=== PATIENT | male | born 1965 | race Caucasian/White ===

== ENCOUNTER 2019-10-09 11:14 | Observation (INO) | payer OTHER ==
[~2019-10-09 11:14] MED LIST: Calcium Chloride 1 GM/10 ML Abboject SYRINGE ONE; Dexamethasone 20 MG/5 ML VIAL ONE; EPHEDRINE 25 MG/5 ML SYRINGE ONE; Lidocaine 1% PF 5 ML VIAL ONE; Ondansetron PF 4 MG/2 ML Vial ONE; PHENYLEPHRINE-NS 100 MCG/ML 10 ML SYRINGE ONE; PROPOFOL 200 MG/20 ML VIAL ONE; Rocuronium Bromide 10 MG/ML (10ML VIAL) ONE; Succinylcholine Chloride 20 MG/ML 10 ml SYRINGE FS ONE
[2019-10-09] MEDS ORDERED: Lidocaine 1% w/Epinephrine 1:100K 20 ML VIAL ONE (11:56)
[2019-10-09] MEDS ORDERED: Adacel (T-DAP) 0.5 ML SYRINGE ONE (12:17)
--- NOTE | 2019-10-09 12:48 | RAD ---
EXAM: 3 views of the left ankle HISTORY: Laceration to the lower leg from tin metal COMPARISON: None FINDINGS: 3 views of the left ankle shows no evidence of acute fracture or dislocation. A large lacer ation of the lateral aspect of the leg is seen with adjacent soft tissue swelling. No radiopaque foreign body is seen. No degenerative changes are present. Calcaneal enthesophytes are incidentally s een. IMPRESSION: No evidence of acute osseous abnormality.
--- NOTE | 2019-10-09 12:49 | RAD ---
EXAM: 2 views of the left tibia/fibula HISTORY: Leg pain after laceration with metal COMPARISON: None FINDINGS: There is no evidence of acute fracture or dislocation. A laceration is seen overlying the d istal aspect of the fibula. No degenerative changes are seen in the knee or ankle. No radiopaque foreign body is seen. IMPRESSION: No evidence of acute osseous abnormality.
[2019-10-09] MEDS ORDERED: CEFAZOLIN 1 GM VIAL ONE (13:30)
[2019-10-09 13:40] LABS: #Lymphocytes 1.3 thou/uL (1.20-3.40); #Monocytes 0.7 thou/uL (0.11-0.59); #Neutrophils 8.3 thou/uL (1.40-6.50); %Basophils 0.4 % (0.0-1.0); %Eosinophils 0.5 % (0.0-10.0); %Lymphocytes 12.4 % (21.0-51.0); %Monocytes 6.4 % (0.0-10.0); %Neutrophils 80.3 % (42.0-75.0); Hemoglobin 17.2 g/dL (14.0-18.0); Mean Corpuscular HGB CONC 33.9 g/dL (32.0-36.0); Mean Corpuscular Hemoglobin 32.4 pg (27.0-31.0); Mean Corpuscular Volume 95.3 fL (78.0-98.0); Mean Platelet Volume 7.6 fL (7.4-10.4); Platelet Count 214 thou/uL (130-400); RBC Distribution Width 12.6 % (11.5-14.5); Red Blood Cell (RBC) Count 5.31 mill/uL (4.70-6.10); White Blood Cell (WBC) Count 10.4 thou/uL (4.8-10.8)
[2019-10-09] MEDS ORDERED: Fentanyl 100 MCG/2 ML VIAL ONE ×2 (14:48→18:07)
[2019-10-09] MEDS ORDERED: PROPOFOL 20 ML ONE (18:07)
[2019-10-09] MEDS ORDERED: Meperidine HCl/PF 25 MG/ML VIAL ONE (18:49)
[2019-10-09] MEDS ORDERED: traMADol HCl 50 MG TAB PO PRN ×2 (19:53)
[2019-10-09] MEDS ORDERED: Promethazine HCl 25 MG/ML VIAL IM PRN (19:53)
[2019-10-09] MEDS ORDERED: Morphine 2 MG/ML VIAL SLOW IVP PRN (19:53)
[2019-10-09] MEDS ORDERED: Ondansetron PF 4 MG/2 ML Vial IV PRN (19:53)
[2019-10-09] MEDS ORDERED: Acetaminophen 325 MG TAB PO PRN (19:53)
[2019-10-09] MEDS ORDERED: HYDROcodone/Acetaminophen 5/325 mg Tablet PO PRN ×2 (19:53)
[2019-10-09] MEDS ORDERED: Communication Order-Pharmacy FS SCH (19:53)
--- NOTE | 2019-10-09 20:03 | HP ---
HISTORY OF PRESENT ILLNESS: Mr. Manuel is a 54-year-old male, who was working on his house, when he came down a piece of sheet metal, cut his left lateral leg. I was consulted because of exposed tendons, weakness with eversion. The patient is currently resting in bed. 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 Rate his pain as 3/10. PAST MEDICAL HISTORY: Hypertension. PAST SURGICAL HISTORY: Knee arthroscopy. ALLERGIES: NO KNOWN DRUG ALLERGIES. MEDICATIONS: 1. Lisinopril. 2. NSAID, not otherwise specified. SOCIAL HISTORY: He smokes a pack a day. The patient lives at home. The patient is from [place]. Had an occasional alcohol use. No illicit drug use. 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 REVIEW OF SYSTEMS: Denies fevers, chills, nausea, vomiting, diarrhea, chest pain, shortness of breath, hematemesis, hemoptysis, visual or auditory hallucinations, or other symptomatic complaints. PHYSICAL EXAMINATION: VITAL SIGNS: The patient's vital signs are 120/66, 84, 16 rate, 3/10 pain, and 97%. GENERAL: Alert and oriented male, resting comfortably in bed, in no acute distress. EXTREMITIES: The patient has a stable knee exam, no effusion. Focused exam of left lower extremity shows a horseshoe shaped incision at the distal third over his fibula with exposed tendons. The patient has a palpable 2+ DP and PT pulses. He is able to flex and extend his toes. He has weakness on eversion. No inversion. He was unable to plantar flex or dorsiflex. His Achilles appears intact. The patient has within visualization of the wound, I can see the tendon bellies of what appears to be the palmaris brevis and palmaris longus lacerated, with eversion they retracted, have no attachment. Sensation intact L4 through S1 soft compartments. LABORATORY DATA: Radiographs of his ankle and tibia show no acute osseous abnormality. IMPRESSION: Left leg laceration horseshoe configuration with peroneal tendon lacerations. ASSESSMENT AND PLAN: The patient will be taken to the operating suite for irrigation and debridement of his wounds with repair of his peroneal tendons. The patient will need to have closure of his wound, will be placed in a posterior splint, nonweightbearing, receive tetanus and antibiotics here. I discussed the risks and benefits of surgery to include pain; scar; bleeding; infection; damage to vital structures, nerves, arteries, and tendons; need for further surgery; failure of repair; damage to vital structures; and loss of life or limb. I discussed that smoking cessation would improve his overall outcome. The patient is in agreement with plan of care. I will take him to the operative suite. He will be tested for COVID or treated as a possible COVID case based on policy, the patient will likely be discharged home today if everything is in order. Job ID: [id number]
[2019-10-09] MEDS ORDERED: TETANUS AND DIPHTHERIA TOX/PF 0.5 ML DISP.SYRIN IM SCH (21:00)
[2019-10-09] MEDS: Aspirin 81 mg Enteric Coated Tablet PO SCH (21:38)
[2019-10-09 22:08] VITALS: BMI 38.0
[2019-10-09] MEDS: CEFAZOLIN 2 GM in Premix Bag 1 BAG IVPB SCH (23:03)
[2019-10-09] MEDS: Ketorolac Tromethamine 30 MG/ML VIAL IVP SCH (23:03)
[2019-10-10] MEDS: Ketorolac Tromethamine 30 MG/ML VIAL IVP SCH ×2 (05:17→13:10)
[2019-10-10 07:34] VITALS: BP 114/68; TEMP 98.1
[2019-10-10] MEDS: Aspirin 81 mg Enteric Coated Tablet PO SCH (07:41)
[2019-10-10] MEDS: CEFAZOLIN 2 GM in Premix Bag 1 BAG IVPB SCH (07:42)
--- NOTE | 2019-10-10 13:01 | OP ---
DATE OF PROCEDURE: 10/09/2019 PREOPERATIVE DIAGNOSES: Left 10-cm laceration over the fibula with a peroneus longus tendon laceration and peroneus brevis tendon laceration. POSTOPERATIVE DIAGNOSES: 1. Left 10-cm partial-thickness with full-thickness component U-shaped skin flap with a peroneus longus tendon laceration, full-thickness. 2. Left peroneus brevis full-thickness tendon laceration. 3. Right partial-thickness Achilles tendon tear. 4. A 2-cm transverse laceration medial right ankle. PROCEDURE PERFORMED: 1. Irrigation and debridement of left ankle wound with small avulsion of the bone. 2. Peroneus longus tendon repair. 3. Peroneus brevis tendon repair. 4. Irrigation and debridement of 2-cm laceration and closure. 5. Right partial Achilles tendon repair. WEATHER OBSERVER: None. ANESTHESIA: Dr. Maria Elena Zapata. The patient received general endotracheal intubation. ESTIMATED BLOOD LOSS: Less than 40 mL. TOURNIQUET TIME: None. IMPLANTS: None. ANTIBIOTICS: Ancef 2 g. COMPLICATIONS: None. HISTORY OF PRESENT ILLNESS: Mr. Manuel is a 54-year-old male who was working on a roof, had a piece of metal come down and lacerate the lateral aspect of his left leg. He was found in the ER for peroneal tendon and brevis tendon repairs. The patient was noted by the nursing staff to complain of right ankle pain. While in the OR while evaluating the right ankle and there was a 2-cm laceration of what appeared to be of the Achilles. Therefore, I elected to contact the patient's mother and daughter to discuss and consented for incision, irrigation, debridement, and potential repair of any structures of the right ankle. I discussed the risks and benefits of repair of the left ankle of his peroneal tendons to include, pain, scar, bleeding, infection, failure, need for further surgery, continued pain despite surgical intervention, skin and wound healing problems, blood clots, loss of life or limb. The patient understood the risks and benefits of the procedure, elected to proceed. DESCRIPTION OF PROCEDURE: Time-out was performed designating bilateral lower extremity as the operative site based on site, consents, and marking. After time-out, the patient's right lower extremity was started on first. We had the patient with a bump under his left hip. We had cleaned with betadine. After we prepped the right lower extremity and left lower extremity out, we started on the right lower extremity and made a reverse transverse incision proximally and distally, making kind of a Z-shaped incision to expose the tendon. I exposed the paratenon. As I dorsiflexed the foot and pulled the sheath up, there was a partial-thickness tear on the medial aspect of the patient's Achilles tendon. It appeared to be less than 20%. I washed out the site. I evaluated the other structures, did not see any loose or tendon ruptures that were noted in any of the other structures in the posterior medial aspect, it appeared to only be the Achilles. I washed. I took a 2-0 FiberWire and did a [id number] stitch in a running, followed by a running stitch, like a peritendinous stitch to sew that flap down, cut both ends long. I then took the paratenon, which I closed with 3-0 Vicryl and I closed the skin with 3-0 nylon stitches. I placed soft tissue dressing and moved to the patient's left ankle. I washed the left ankle out with about 2 L of water, curetted out a little small bone fragment, which was just an abrasion. I extended the incision distally along the fibula leaving the proximal section intact. It was a U-shaped cut that had started almost like a full-thickness skin graft going to the skin, down from the epidermis, down to the dermis, into the fat creating a thin slice proximally in one section. I exposed both ends of the tendons after cleaning off both sides. I isolated and found the peroneus longus and the brevis and their separate tendon bellies and used [place] running lock stitches for my core sutures in both sides. With 2-0 FiberWire, I attempted a #2, but felt that it was too large relative to the tendon. I was concerned about its potential damage to the tendon. Therefore, I used a 2-0 FiberWire for strength and size. After getting my epitendinous sutures, I started with my peroneus brevis. I passed the sutures proximally and distally, pulling tension and tied knots on both sides cutting long limbs to allow for the sutures to lay down and not cause any abrasions. I then used a running Ethibond to close the tendon down and cut both ends of the knots. I then moved to the peroneus longus. I passed the 2-0 FiberWire from both sides again away from this course, I tied the knots, cut the limbs long and then used a 2-0 Ethibond to do a running stitch to help with core strength. I washed. I then started closing the skin cut that I made with 3-0 nylon horizontal mattress sutures moving up towards the full-thickness graft. I then used two trauma stitches and tried to incorporate and then laid the flaps to come down and finished posteriorly over the laceration with horizontal mattress stitches. I placed the patient in a soft tissue dressing and then a splint. PLAN: The patient will be placed into a boot on the right side. I will discuss with him his postop weightbearing precautions. Given it is a partial-thickness, he could be weightbearing for transfers, but I would be concerned about continued excessive weightbearing. We would progress the weightbearing at 2 weeks. His left ankle I am leaving plantar flexed to allow some stress off the tendons. We will progress that to neutral at his next visit in a boot and we will discuss our weightbearing precautions then. The patient will likely stay overnight so he can get crutch training and a wheelchair. Job ID: [id number]
== END 2019-10-10 13:33 | disposition home or self-care (01) ==
LOC: ERS 11:14 → SDC 14:39 → SURG A 19:36
PROVIDERS: ADMIT Orthopaedic Surgery; ATTEND Orthopaedic Surgery
PROC: 0LQP0ZZ Repair Left Lower Leg Tendon, Open Approach (ICD-10-PCS; principal; 2019-10-09)
PROC: 0LQW0ZZ Repair Left Foot Tendon, Open Approach (ICD-10-PCS; 2019-10-09)
PROC: 0LQW0ZZ Repair Left Foot Tendon, Open Approach (ICD-10-PCS; 2019-10-09)
DX: S86.322A Laceration of muscle(s) and tendon(s) of peroneal muscle group at lower leg level, left leg, initial encounter (principal); S86.022A Laceration of left Achilles tendon, initial encounter; S81.812A Laceration without foreign body, left lower leg, initial encounter; I10 Essential (primary) hypertension; F17.210 Nicotine dependence, cigarettes, uncomplicated; Z79.899 Other long term (current) drug therapy; W26.8XXA Contact with other sharp object(s), not elsewhere classified, initial encounter; Y93.H3 Activity, building and construction
CPT/HCPCS: 85025; 90471; 90715; 93005; 96365; 96366; 96375; 96376; G0378; J0690; J1100; J1885; J2175; J2405; J2704; J3010

== ENCOUNTER 2024-04-21 13:56 | Outpatient (CLI) | payer OTHER | END 2024-04-21 13:57 | disposition home or self-care (01) | LOC: CT 13:56 | PROVIDERS: ATTEND Orthopaedic Surgery | DX: M17.12 Unilateral primary osteoarthritis, left knee (principal) ==